=== PATIENT | female | born 1990 | race Hispanic/Latino ===

== ENCOUNTER 2017-09-14 15:08 | Emergency (ER) | payer OTHER, SELFPAY | END 2017-09-14 15:49 | disposition home or self-care (01) | LOC: ERS 15:08 | DX: O98.811 Other maternal infectious and parasitic diseases complicating pregnancy, first trimester (principal); B35.4 Tinea corporis; O99.711 Diseases of the skin and subcutaneous tissue complicating pregnancy, first trimester; L08.9 Local infection of the skin and subcutaneous tissue, unspecified; Z3A.01 Less than 8 weeks gestation of pregnancy | CPT/HCPCS: 99282 ==

== ENCOUNTER 2017-11-11 17:11 | Emergency (ER) | payer MEDICAID, OTHER ==
[2017-11-11 17:48] LABS: Bilirubin Negative (Negative); Blood, Urine Negative (Negative); Glucose, Urine (Dipstick) Negative (Negative); Ketone, Urine Negative (Negative); Nitrite Negative (Negative); Protein, Urine (Dipstick) Negative (Neg-Trace); Urobilinogen 0.2 mg/dL (0.2-1.0)
== END 2017-11-11 18:59 | disposition home or self-care (01) ==
LOC: ERS 17:11
DX: O99.89 Other specified diseases and conditions complicating pregnancy, childbirth and the puerperium (principal); R10.33 Periumbilical pain; Z3A.16 16 weeks gestation of pregnancy
CPT/HCPCS: 81003

== ENCOUNTER 2022-07-08 14:04 | Emergency (ER) | payer OTHER | END 2022-07-08 15:43 | disposition home or self-care (01) | LOC: ERS 14:04 | DX: H10.9 Unspecified conjunctivitis (principal) | CPT/HCPCS: 99282 ==

== ENCOUNTER 2023-03-26 08:29 | Emergency (ER) | payer OTHER ==
[2023-03-26] MEDS ORDERED: Ondansetron ODT 4 MG TAB ONE (09:13)
== END 2023-03-26 09:20 | disposition home or self-care (01) ==
LOC: ERS 08:29
DX: R11.2 Nausea with vomiting, unspecified (principal)
CPT/HCPCS: 99283; Q0162